=== PATIENT | female | born 1955 | race Caucasian/White ===

== ENCOUNTER 2023-09-10 05:35 | Day surgery (SDC) | payer MEDICARE, OTHER ==
[2023-09-09 09:26] VITALS: BMI 25.7
[2023-09-10] MEDS ORDERED: Bupivacaine 0.25% HCL 30 ML VIAL ONE (06:48)
[2023-09-10] MEDS ORDERED: EPINEPHrine 1 MG/ML VIAL ONE (06:48)
[2023-09-10] MEDS ORDERED: CEFAZOLIN 2 GM VIAL ONE (07:14)
[2023-09-10] MEDS ORDERED: fentaNYL 50 mcg/mL 1 mL Vial ONE ×3 (07:23→09:22)
[2023-09-10] MEDS ORDERED: Rocuronium Bromide 10 MG/ML (10ML VIAL) ONE (07:23)
[2023-09-10] MEDS ORDERED: Lidocaine 1% PF 5 ML VIAL ONE (07:23)
[2023-09-10] MEDS ORDERED: PROPOFOL 20 ML ONE (07:23)
[2023-09-10] MEDS ORDERED: Dexamethasone 20 MG/5 ML VIAL ONE (07:39)
[2023-09-10] MEDS ORDERED: ePHEDrine Sulfate 50 MG/10 ML VIAL ONE (08:12)
[2023-09-10] MEDS ORDERED: Ondansetron PF 4 MG/2 ML Vial ONE ×2 (08:22→08:43)
[2023-09-10] MEDS ORDERED: Glycopyrrolate 0.2 MG/ML 5 ML SYRINGE ONE (08:23)
[2023-09-10] MEDS ORDERED: HYDROcodone/Acetaminophen 5/325 mg Tablet ONE (10:11)
== END 2023-09-10 10:55 | disposition home or self-care (01) ==
LOC: CSHSDC 05:35
PROVIDERS: ATTEND Surgery
PROC: 0WUF4JZ Supplement Abdominal Wall with Synthetic Substitute, Percutaneous Endoscopic Approach (ICD-10-PCS; principal; 2023-09-10)
DX: K43.9 Ventral hernia without obstruction or gangrene (principal); E78.5 Hyperlipidemia, unspecified; F17.290 Nicotine dependence, other tobacco product, uncomplicated; G43.909 Migraine, unspecified, not intractable, without status migrainosus; Z79.82 Long term (current) use of aspirin; Z79.899 Other long term (current) drug therapy; Z90.49 Acquired absence of other specified parts of digestive tract; Z90.710 Acquired absence of both cervix and uterus; Z98.51 Tubal ligation status; Z98.890 Other specified postprocedural states
CPT/HCPCS: 49593; C1781; J0171; J0665; J1100; J2405; J2704; J3010